=== PATIENT | male | born 1985 | race Caucasian/White ===

== ENCOUNTER 2018-03-18 09:44 | Emergency (ER) | payer BC ==
[2018-03-18 09:59] VITALS: O2SAT 97
--- NOTE | 2018-03-18 10:10 | ED.PDOC ---
History of Present Illness - General Chief Complaint: Abdominal Pain Stated Complaint: Low abdomen discomfort, c/o's Time Seen by Provider: 03/18/18 10:04 Information Source: patient Exam Limitations: no limitations - History of Present Illness Initial Comments: C/O 3 DAY HX OF LOWER ABDOMINAL PAIN, SHARP, COL[place]Y. WORSENING. Abdominal Pain Onset Location: LLQ, suprapubic Pain Radiation: other - ARAM TESTICLES. Quality: moderate Improving Factors: nothing Worsening Factors: other - URINATION AND PASSING FLATUS Associated Symptoms: denies symptoms Review of Systems - Review of Systems Constitutional: Denies: chills, fever EENTM: States: no symptoms reported Respiratory: Denies: cough, short of breath Cardiology: Denies: chest pain, palpitations Gastrointestinal/Abdominal: States: abdominal pain. Denies: constipation, diarrhea, nausea, vomiting Genitourinary: States: other - PAIN INCREASES WITH URINATION, CLOUDY URINE. . Denies: dysuria, hematuria Musculoskeletal: States: no symptoms reported Skin: States: no symptoms reported Neurological: States: no symptoms reported Endocrine: States: no symptoms reported Hematologic/Lymphatic: States: no symptoms reported Past Medical History (General) - Patient Medical History Hx Stroke: No Hx Congestive Heart Failure: No Hx Diabetes: No Hx MRSA: No Surgical History: other - BACK, PILONIDAL CYST - Vaccination History Hx Influenza Vaccination: No Hx Pneumococcal Vaccination: No - Social History Hx Tobacco Use: Yes Hx Alcohol Use: No Family Medical History - Family History Father Family History: No Known Living Status: Still Living Physical Exam - Physical Exam General Appearance: Alert, No apparent distress, Obese Eyes, Ears, Nose, Throat Exam: PERRL/EOMI, normal ENT inspection Neck: non-tender, full range of motion, supple Respiratory: lungs clear, normal breath sounds Cardiovascular/Chest: regular rate, rhythm, no murmur Gastrointestinal/Abdominal: other - HYPOACTIVE BS, TTP SUPRAPUBIC AND LLQ. LLQ> SUPRAPUBIC Male Genitalia: normal genitalia, other - TESTICLES NL, NO SWELLING, NTTP. CREMASTERIC INTACT Back Exam: normal inspection, no CVA tenderness, no vertebral tenderness Extremity: normal range of motion, non-tender, normal inspection Neurologic: alert, oriented x 3 Skin Exam: normal color, warm/dry Lymphatic: no adenopathy Progress - Progress Progress: 03/18/18 11:07 FEELS MUCH BETTER, ABD MUCH BETTER. LAB REVIEWED, WILL GET CT ABDOMEN - EKG/XRAY/CT CT: ABD/PELVIS, W/O EPIPLOIC APPENDIGITIS VS DIVERTICULTIS Departure - Departure Clinical Impression: Epiploic appendagitis ICD-10 Supporting Text: DDX EARLY DIVERTICULITIS Time of Disposition: 11:47 Disposition: Discharge to Home or Self Care Condition: Good Departure Forms: ED Discharge - Pt. Copy, Patient Portal Self Enrollment Instructions: DI for Abdominal Pain-Adult, Diverticulitis (DC) Prescriptions: Acetaminophen W/ Codeine [Tylenol W/ CODEINE #3] 1 ea PO Q6HR PRN #24 PRN Reason: Pain Ketorolac Tromethamine [Toradol Tabs] 10 mg PO Q8HR PRN #15 tab PRN Reason: Pain Ciprofloxacin [Cipro] 500 mg PO BID #20 ml metroNIDAZOLE [Flagyl] 500 mg PO TID #42 tab Home Medications: Ambulatory Orders Acetaminophen W/ Codeine [Tylenol W/ CODEINE #3] 1 ea PO Q6HR PRN #24 03/18/18 Ciprofloxacin [Cipro] 500 mg PO BID #20 ml 03/18/18 Ketorolac Tromethamine [Toradol Tabs] 10 mg PO Q8HR PRN #15 tab 03/18/18 metroNIDAZOLE [Flagyl] 500 mg PO TID #42 tab 03/18/18
[2018-03-18] MEDS ORDERED: KETOROLAC TROMETHAMINE INJ 30 MG/ML VIAL IV ONE (10:11)
--- NOTE | 2018-03-18 11:32 | CT ---
PROCEDURE: CT Abdomen and Pelvis Without Intravenous Contrast CLINICAL INDICATION: The patient is 32 years old and is Male; LLQ PAIN, RENAL CALCULI VS DIVERTICULITIS TECHNIQUE: Axial computed tomography images of the abdomen and pelvis without intravenous contrast. Sagittal and coronal reformatted images were created and reviewed. This exam was performed according to our departmental dose-optimization program, which includes automated exposure control, adjustment of the mA and/or kV according to patient size and/or use of iterative reconstruction technique. As a consequence of the lack of intravenous contrast, there is limited evaluation of the organs and soft tissues. COMPARISON: No relevant prior studies available. FINDINGS: LUNG BASES: Lung bases are unremarkable. ABDOMEN: LIVER: Hepatic steatosis is identified. No intrahepatic lesions are noted. GALLBLADDER AND BILE DUCTS: Unremarkable. No calcified stones. No ductal dilation. PANCREAS: Unremarkable. No ductal dilation. SPLEEN: Unremarkable. No splenomegaly. No splenic lesion noted. ADRENALS: Unremarkable. No mass. KIDNEYS AND URETERS: There is no evidence of hydronephrosis or ureteral obstruction bilaterally on this noncontrast CT. Bilaterally, there are 1 mm calculi in the lower pole of both kidneys which are nonobstructing. STOMACH AND BOWEL: There is focal inflammation at the RIGHT aspect of the distal sigmoid colon with mild associated wall thickening of the adjacent colon. There do not appear to be any adjacent diverticula. The finding is best seen on image 163/209 of series 2. The appearance is suggestive of epiploic appendigitis, a subtle limiting benign inflammatory process. There is no discrete nidus. Less likely, this could represent acute mild diverticulitis. There is no abscess collection or perforation. There is no evidence of diverticulitis. There is no evidence of bowel obstruction. There is no oral contrast in the bowel. PELVIS: APPENDIX: The appendix is visualized and is normal in appearance. BLADDER: The urinary bladder is underdistended. No stones. REPRODUCTIVE: There are calcifications of the prostate gland. ABDOMEN and PELVIS: INTRAPERITONEAL SPACE: See above. BONES/JOINTS: There are degenerative changes at L5-S1. No acute fracture. No dislocation. SOFT TISSUES: There is a small low density soft tissue superficial nodule in the LEFT lower flank subcutaneous tissues measuring 6 mm on image 31/209 of series 2. Correlate with physical exam. There is a small fat containing umbilical hernia noted. VASCULATURE: Unremarkable. No abdominal aortic aneurysm. LYMPH NODES: Unremarkable. No significant retroperitoneal or pelvic lymphadenopathy. OTHER FINDINGS: There is a benign granulomatous calcification in the LEFT lower quadrant anteriorly. IMPRESSION: 1. There is focal inflammation at the RIGHT aspect of the distal sigmoid colon with mild associated wall thickening of the adjacent colon. There do not appear to be any adjacent diverticula. The finding is best seen on image 163/209 of series 2. The appearance is suggestive of epiploic appendagitis, a subtle limiting benign inflammatory process. There is no discrete nidus. Less likely, this could represent acute mild diverticulitis. There is no abscess collection or perforation. 2. There is no evidence of hydronephrosis or ureteral obstruction bilaterally on this noncontrast CT. 3. There is a small low density soft tissue superficial nodule in the LEFT lower flank subcutaneous tissues measuring 6 mm on image 31/209 of series 2. Correlate with physical exam. Electronically signed by: Maksim Renee MD 03/18/2018 11:31 AM CDT
[2018-03-18 11:50] VITALS: BP 139/85; TEMP 98
== END 2018-03-18 11:57 | disposition home or self-care (01) ==
LOC: ER 09:44
DX: K46.9 Unspecified abdominal hernia without obstruction or gangrene (principal); Z87.891 Personal history of nicotine dependence
CPT/HCPCS: 36415; 74176; 80048; 81001; 85025; J1885